=== PATIENT | female | born 1975 | race Hispanic/Latino ===

== ENCOUNTER 2023-09-12 01:11 | Observation (INO) | payer SELFPAY ==
[2023-09-12] MEDS ORDERED: Ondansetron PF 4 MG/2 ML Vial ONE ×2 (01:40→08:06)
[2023-09-12] MEDS ORDERED: Morphine 4 MG/ML VIAL ONE ×2 (01:40→02:14)
[2023-09-12] MEDS ORDERED: Pantoprazole 40 MG VIAL ONE (01:41)
[2023-09-12 02:06] LABS: #Basophils 0.04 10x3/uL (0.0-0.2); %Basophils 0.3 % (0.0-1.0); %Eosinophils 0.4 % (0.0-10.0); %Monocytes 2.8 % (0.0-10.0); %Neutrophils 89.1 % (42.0-75.0); Hematocrit 34.8 % (36.0-47.0); Hemoglobin 11.5 g/dL (12.0-16.0); Mean Corpuscular Hemoglobin 27.1 pg (27.0-31.0); Mean Corpuscular Volume 81.9 fL (78.0-98.0); Mean Platelet Volume 12.2 fL (7.4-10.4); Platelet Count 219 10x3/uL (130-400); RBC Distribution Width 16.1 % (11.5-14.5); Red Blood Cell (RBC) Count 4.25 mill/uL (4.20-5.40)
[2023-09-12] MEDS ORDERED: Ketorolac Tromethamine 30 MG (1 mL) VIAL ONE (02:15)
[2023-09-12 02:25] LABS: BHCG - Serum Negative (NEGATIVE); Pregs Control Background? CLEAR/WHITE (CLR/WHITE); Pregs Control Bar Appear? YES (CONTROL BAR)
[2023-09-12 02:35] LABS: ALT (SGPT) 22 U/L (8-55); AST (SGOT) 39 U/L (5-34); Albumin 4.1 g/dL (3.5-5.0); Alkaline Phosphatase 76 U/L (40-110); Anion Gap 17 mmol/L (10-20); BUN (Urea Nitrogen) 12 mg/dL (7.0-18.7); Calc. Creatinine Clearance 0 mL/min (70-130); Calcium 9.6 mg/dL (7.8-10.44); Carbon Dioxide 21 mmol/L (22-29); Chloride 105 mmol/L (98-107); Estimated GFR 110; Globulin 3.2 g/dL (2.4-3.5); Glucose 192 mg/dL (70-105); Lipase 31 U/L (8-78); Protein, Total 7.3 g/dL (6.0-8.3); Sodium 139 mmol/L (136-145)
[2023-09-12 02:39] LABS: Troponin I Less than 0.010 ng/mL (< 0.028)
[2023-09-12] MEDS ORDERED: traMADol HCl 50 MG TAB PO PRN (03:17)
[2023-09-12] MEDS ORDERED: Acetaminophen 325 MG TAB PO PRN (03:17)
[2023-09-12] MEDS ORDERED: Piperacillin/Tazobactam 4.5 GM VIAL ONE (03:43)
[2023-09-12] MEDS ORDERED: Sodium Chloride 0.9% 100 ML ONE ×2 (03:43→09:04)
[2023-09-12 04:32] LABS: #Basophils Less than 0.03 10x3/uL (0.0-0.2); #Eosinphils Less than 0.03 10x3/uL (0.0-0.7); %Basophils 0.2 % (0.0-1.0); %Eosinophils 0.2 % (0.0-10.0); %Lymphocytes 5.4 % (21.0-51.0); %Monocytes 3.3 % (0.0-10.0); %Neutrophils 90.5 % (42.0-75.0); Hematocrit 34.7 % (36.0-47.0); Mean Corpuscular HGB CONC 31.7 g/dL (32.0-36.0); Mean Corpuscular Volume 85.3 fL (78.0-98.0); Mean Platelet Volume 11.8 fL (7.4-10.4); Platelet Count 179 10x3/uL (130-400); Red Blood Cell (RBC) Count 4.07 mill/uL (4.20-5.40)
[2023-09-12 04:40] LABS: Anion Gap 12 mmol/L (10-20); BUN (Urea Nitrogen) 10 mg/dL (7.0-18.7); Calc. Creatinine Clearance 0 mL/min (70-130); Carbon Dioxide 22 mmol/L (22-29); Chloride 108 mmol/L (98-107); Estimated GFR 111; Glucose 161 mg/dL (70-105); Potassium 3.6 mmol/L (3.5-5.1); Sodium 138 mmol/L (136-145)
[2023-09-12] MEDS: Morphine 2 MG/ML VIAL SLOW IVP PRN (05:15)
[2023-09-12] MEDS: Ondansetron PF 4 MG/2 ML Vial IVP PRN (05:35)
[2023-09-12 05:45] VITALS: TEMP 97.4; BMI 37.5
[2023-09-12 07:48] VITALS: BP 126/80
[2023-09-12] MEDS ORDERED: PROPOFOL 20 ML ONE (08:06)
[2023-09-12] MEDS ORDERED: SUGAMMADEX SODIUM 200 MG/2 ML VIAL ONE (08:06)
[2023-09-12] MEDS ORDERED: Lidocaine 1% PF 5 ML VIAL ONE (08:06)
[2023-09-12] MEDS ORDERED: Dexamethasone 20 MG/5 ML VIAL ONE (08:06)
[2023-09-12] MEDS ORDERED: fentaNYL PF 100 MCG/2 ML SYRINGE ONE (08:06)
[2023-09-12] MEDS ORDERED: Rocuronium Bromide 10 MG/ML (10ML VIAL) ONE (08:06)
[2023-09-12] MEDS ORDERED: Midazolam HCl 2 mg/2 ml Vial ONE (08:07)
[2023-09-12] MEDS ORDERED: EPINEPHrine 1 MG/ML VIAL ONE (08:19)
[2023-09-12] MEDS ORDERED: Bupivacaine 0.25% HCL 30 ML VIAL ONE (08:20)
[2023-09-12] MEDS ORDERED: Iopamidol 30 ML ONE (08:46)
[2023-09-12] MEDS ORDERED: Glucagon 1 MG/ML KIT ONE (08:49)
[2023-09-12] MEDS ORDERED: cefOXitin 2 GM VIAL ONE (09:04)
[2023-09-12] MEDS ORDERED: PHENYLEPHRINE-NS 100 MCG/ML 10 ML SYRINGE ONE (09:29)
[2023-09-12] MEDS ORDERED: fentaNYL 50 mcg/mL 1 mL Vial ONE (11:47)
== END 2023-09-12 18:02 | disposition home or self-care (01) ==
LOC: ERS 01:11 → SURG A 03:30 → INTOOBSV 03:30
PROVIDERS: ADMIT Surgery; ATTEND Surgery
PROC: 0FT44ZZ Resection of Gallbladder, Percutaneous Endoscopic Approach (ICD-10-PCS; principal; 2023-09-12)
PROC: BF53200 Other Imaging of Gallbladder and Bile Ducts using Fluorescing Agent, Indocyanine Green Dye, Intraoperative (ICD-10-PCS; 2023-09-12)
DX: K80.12 Calculus of gallbladder with acute and chronic cholecystitis without obstruction (principal); K83.8 Other specified diseases of biliary tract; K82.8 Other specified diseases of gallbladder; F32.A Depression, unspecified
CPT/HCPCS: 36415; 47532; 71045; 76705; 80053; 83690; 84484; 84703; 85025; 86850; 86900; 86901; 88304; 93005; 96361; 96374; 96375; 96376; A4649; C1713; C9113; G0378; J0171; J0665; J0694; J1100; J1611; J1885; J2250; J2270; J2272; J2405; J2543; J2704; J3010; J3490; Q9967